=== PATIENT | female | born 1985 | race American Indian/Alaskan Native ===

== ENCOUNTER 2019-11-29 17:02 | Emergency (ER) | payer OTHER ==
[2019-11-29 17:09] VITALS: BP 147/90
[2019-11-29] MEDS ORDERED: METOCLOPRAMIDE 10 MG/2 ML INJ IV ONE (17:13)
[2019-11-29] MEDS ORDERED: SODIUM CHLORIDE 0.9% 1000 ML 1,000 ML IV ONE (17:13)
[2019-11-29] MEDS ORDERED: diphenhydrAMINE 50 MG/ML VIAL IV ONE (17:13)
--- NOTE | 2019-11-29 17:13 | Event Note ---
ED Screening Note ED Screening Note: 6 hours ago began having a headache photophobia +nausea no vomiting no hx of migraines no numbness or weakness has not taken anything for it [place] without any issues but began suddenly having the headache PMHx lupus -takes steroids as needed allergy: fentanyl has a IUD This initial assessment/diagnostic orders/clinical plan/treatment(s) is/are subject to change based on patients health status, clinical progression and re- assessment by fellow clinical providers in the ED. Further treatment and workup at subsequent clinical providers discretion. Patient/guardian urged not to elope from the ED as their condition may be serious if not clinically assessed and managed. Initial orders include: CT head meds
[2019-11-29] MEDS ORDERED: ACETAMINOPHEN 325 MG TAB PO ONE (17:15)
--- NOTE | 2019-11-29 18:15 | Emergency Department Report ---
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 Patient states that she was walking in [place] several hours later she developed a acute onset of a headache. Patient states that she usually takes steroids for her lupus. She has a Mirena and. She reports that her pain was a 10 out of 10 when she came in and after having medications is a 6 out of 10 now. Patient does report is improving. Patient denies any trauma no weakness no tingling of her hands some nausea but no vomiting no chest pain shortness of breath. Timing/Duration: 4-6 hours Quality: moderate Head Injury Location: frontal Modifying Factors: improves with: exposure to light Associated Symptoms: nausea/vomiting (Nausea no vomiting). denies: fatigue, facial pain, fever/chills, nasal congestion, nasal drainage, numbness in legs/feet, seizures, sinus infection, stiff neck, weakness Allergies/Adverse Reactions: Allergies fentanyl Allergy (Verified 11/29/19 17:03) Unknown Home Medications: Ambulatory Orders Ibuprofen [Motrin 800 MG tab] 800 mg PO Q8HR PRN #15 tablet 11/29/19 ED Review of Systems ROS: Stated complaint: MIGRAINE, BLURRY VISION Other details as noted in HPI Comment: All other systems reviewed and negative ED Past Medical Hx - Past Medical History Hx Arthritis: Yes (RHEUMATOID) Additional medical history: LUPUS - Surgical History Hx Cholecystectomy: Yes - Social History Smoking Status: Never Smoker Substance Use Type: Alcohol - Medications Home Medications: Home Medications Medication Instructions Recorded Confirmed Last Taken Type Ibuprofen [Motrin 800 MG tab] 800 mg PO Q8HR PRN #15 tablet 11/29/19 Unknown Rx ED Physical Exam - General Limitations: No Limitations General appearance: alert, in no apparent distress - Head Head exam: Present: atraumatic, normocephalic - Eye Eye exam: Present: normal appearance - Back Exam Back exam: Present: normal inspection, full ROM - Expanded Neurological Exam Expanded Patient oriented to: Present: person, place, time Cranial nerves: EOM's Intact: Normal, Gag Reflex: Normal, Tongue Deviation: Normal, Nystagmus: Normal, Facial Sensation: Normal, Facial Palsy with Forehead Movement: Normal, Facial Palsy without Forehead Movement: Normal Cerebellar function: Finger to Nose: Normal, Heel to Aceves: Normal, Romberg: Normal Upper motor neuron: Balta Neglect: Normal, Pronator Drift: Normal, Sensory Extinction: Normal Motor strength exam: RUE: 4, LUE: 4, RLE: 4, LLE: 4 Best Eye Response (Santa Claus): (4) open spontaneously Best Motor Response (Santa Claus): (6) obeys commands Best Verbal Response ([place]): (5) oriented Santa Claus Total: 15 - Psychiatric Psychiatric exam: Present: normal affect, normal mood - Skin Skin exam: Present: warm, dry, intact, normal color. Absent: rash ED Course Vital Signs 11/29/19 11/29/19 17:07 17:08 Temperature 97.9 F Pulse Rate 84 80 Respiratory 18 Rate Blood Pressure 147/90 O2 Sat by Pulse 98 98 Oximetry ED Medical Decision Making - Radiology Data Radiology results: report reviewed Patient Name: ELIDA PACKER Gender: Female Date of : 1985 Referring Provider: ASHLEY CULLEN Organization: [facility] Accession Number: [id number] Requested Date: November 29, 2019 17:13 Report Status: Final Requested Procedure: 1 Procedure Description: CT head/brain wo con Modality: CT Findings Reporting MD: Chase Garcia Dictation Time: November 29, 2019 16:52 Supervisor [employer]: Not available Pharmacy Grad Intern Date: CT head/brain wo con INDICATION / CLINICAL INFORMATION: 34 years Female; sudden onset fam, blurry v ision, photophobia. TECHNIQUE: Routine CT head without contrast. All CT scans at this location are performed using CT dose reduction for ALARA by means of automated exposure control. COMPARISON: None. FINDINGS: BRAIN / INTRACRANIAL CONTENTS: No acute hemorrhage, mass effect, midline shift, hydrocephalus, or acute, large territorial infarct. No chronic infarct or atrophy appreciated. No significant white matter abnormality. CRANIOCERVICAL JUNCTION: No significant abnormality. ORBITS: No significant abnormality of visualized orbits. SINUSES / MASTOIDS: Mucosal thickening is seen in the left sphenoid sinus. ADDITIONAL FINDINGS: None. IMPRESSION: 1. No focal mass, hemorrhage, hydrocephalus, or acute, large territorial infarct. 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 Patient states that she was walking in [place] several hours later she developed a acute onset of a headache. Patient states that she usually takes steroids for her lupus. She has a Mirena and. She reports that her pain was a 10 out of 10 when she came in and after having medications is a 6 out of 10 now. Patient does report is improving. Patient denies any trauma no weakness no tingling of her hands some nausea but no vomiting no chest pain shortness of breath. Patient was given normal saline, Reglan, Benadryl and acetaminophen. CT of head was ordered by triage. Critical care attestation.: If time is entered above; I have spent that time in minutes in the direct care of this critically ill patient, excluding procedure time. ED Disposition Clinical Impression: Headache Disposition: DC-01 TO HOME OR SELFCARE Is pt being admited?: No Does the pt Need Aspirin: No Condition: Stable Instructions: Acute Headache (ED) Additional Instructions: CT scan is negative for any acute findings. Take pain medicine as needed. Follow-up with your primary care provider if your symptoms persist or gets worse. Prescriptions: Ibuprofen [Motrin 800 MG tab] 800 mg PO Q8HR PRN #15 tablet PRN Reason: Pain , Severe (7-10) Referrals: PRIMARY CARE, [Primary Care Provider] - 3-5 Days Forms: Work/School Release Form(ED)
--- NOTE | 2019-12-04 10:18 | Cat Scan Report ---
CT head/brain wo con INDICATION / CLINICAL INFORMATION: 34 years Female; sudden onset fam, blurry vision, photophobia. TECHNIQUE: Routine CT head without contrast. All CT scans at this location are performed using CT dos e reduction for ALARA by means of automated exposure control. COMPARISON: None. FINDINGS: BRAIN / INTRACRANIAL CONTENTS: No acute hemorrhage, mass effect, midline shift, hydrocephalus, or acu te, large territorial infarct. No chronic infarct or atrophy appreciated. No significant white matter abnormality. CRANIOCERVICAL JUNCTION: No significant abnormality. ORBITS: No significant abnormality of visualized orbits. SINUSES / MASTOIDS: Mucosal thickening is seen in the left sphenoid sinus. ADDITIONAL FINDINGS: None. IMPRESSION: 1. No focal mass, hemorrhage, hydrocephalus, or acute, large territorial infarct. Signer Name: Chase Garcia MD, III Signed: 11/29/2019 5:52 PM Workstation Name: [id number]
== END 2019-11-29 19:01 | disposition home or self-care (01) ==
LOC: ED 17:02
DX: R51 Headache (principal); M19.90 Unspecified osteoarthritis, unspecified site; Z79.899 Other long term (current) drug therapy; Z88.8 Allergy status to other drugs, medicaments and biological substances
CPT/HCPCS: 70450; 96374; 96375; 99283; J1200; J2765; J7030

== ENCOUNTER 2019-12-25 15:46 | Emergency (ER) | payer SELFPAY ==
--- NOTE | 2019-12-25 17:47 | Event Note ---
ED Screening Note Date of service: 12/25/19 Time: 17:45 ED Screening Note: This is a 34-year-old female with a history of lupus who presents the ED complaining of swelling to the face and eyes from a lupus flareup. Patient states she is also experiencing pain to the face. Patient states swelli ng to the eyes is making it difficult for her to see. Patient has history of hypertension. This initial assessment/diagnostic orders/clinical plan/treatment(s) is/are subject to change based on patients health status, clinical progression and re- assessment by fellow clinical providers in the ED. Further treatment and workup at subsequent clinical providers discretion. Patient/guardian urged not to elope from the ED as their condition may be serious if not clinically assessed and managed. Initial orders include: cbc,cmp
[2019-12-25 18:09] LABS: Basophils % (Auto) 0.6 % (0.0-1.8); Eosinophils # (Auto) 0.1 K/mm3 (0.0-0.4); Eosinophils % (Auto) 1.7 % (0.0-4.3); Hematocrit 39.7 % (30.3-42.9); Hemoglobin 13.1 gm/dl (10.1-14.3); Lymphocytes % (Auto) 46.2 % (13.4-35.0); Mean Corpuscular HGB Conc 33 % (30-34); Mean Corpuscular Volume 80 fl (79-97); Monocytes # (Auto) 0.4 K/mm3 (0.0-0.8); Monocytes % (Auto) 8.4 % (0.0-7.3); Platelet Count 243 K/mm3 (140-440); Red Blood Count 4.97 M/mm3 (3.65-5.03); Red Cell Distribution Width 12.6 % (13.2-15.2)
[2019-12-25 18:39] LABS: Alanine Aminotransferase 18 units/L (7-56); Albumin 4.6 g/dL (3.9-5); BUN/Creatinine Ratio 9; Blood Urea Nitrogen 6 mg/dL (7-17); Calcium 9.6 mg/dL (8.4-10.2); Hemolysis Index 2
[2019-12-25] MEDS ORDERED: predniSONE 20 MG TAB PO ONE (20:15)
[2019-12-25] MEDS ORDERED: IBUPROFEN 800 MG TAB PO ONE (20:15)
[2019-12-25] MEDS ORDERED: ONDANSETRON 4 MG ODT TAB PO ONE (20:16)
--- NOTE | 2019-12-25 20:42 | Emergency Department Report ---
ED General Adult HPI - General Chief complaint: Pain General Stated complaint: LUPUS FLARE UP/IMPAIRED VISION Source: patient Mode of arrival: Ambulatory Limitations: No Limitations - History of Present Illness Initial comments: Patient is a 34-year-old -[place] female with a history of SLE with occasional exacerbations who presents to the ED with acute onset persistent headache with mild facial and eyelid swelling for the last 2 days. Patient states that she suspected that it may have been her lupus but was flaring and also suspected could also be from elevated blood pressure for which she does not take any medications. Patient states that she does not take any medications at this time for her lupus. Patient denies dizziness, syncope, change in vision, nausea, vomiting, chest pain, shortness of breath, abdominal pain, dysuria, urinary frequency and urgency, fever, chills, cough, neck pain or sore throat. MD Complaint: Facial and eyelid swelling, headache -: Sudden, days(s) (2) Location: head, face Radiation: non-radiation Severity scale (0 -10): 10 Quality: aching, sharp Consistency: constant Improves with: none Worsens with: none Associated Symptoms: denies other symptoms, headaches. denies: confusion, chest pain, cough, diaphoresis, fever/chills, loss of appetite, malaise, nausea/vomiting, rash, seizure, shortness of breath, syncope Treatments Prior to Arrival: none - Related Data Previous Rx's Medication Instructions Recorded Last Taken Type Ibuprofen [Motrin 800 MG tab] 800 mg PO Q8HR PRN #15 tablet 11/29/19 Unknown Rx Butalb/Acetamin/Caff 50-325-40 1 - 2 tab PO Q6HR PRN #12 tab 12/25/19 Unknown Rx [Fioricet 50-325-40] Cyclobenzaprine [Flexeril] 10 mg PO TID PRN #15 tablet 12/25/19 Unknown Rx Ibuprofen [Motrin] 800 mg PO Q8HR PRN #24 tablet 12/25/19 Unknown Rx predniSONE [Deltasone] 40 mg PO QDAY #10 tab 12/25/19 Unknown Rx Allergies Allergy/AdvReac Type Severity Reaction Status Date / Time amoxicillin Allergy Hives Verified 12/25/19 15:58 fentanyl Allergy Unknown Verified 12/25/19 15:58 ED Review of Systems ROS: Stated complaint: LUPUS FLARE UP/IMPAIRED VISION Other details as noted in HPI Constitutional: denies: chills, fever Eyes: other (Mild bilateral eyelids swelling). denies: eye pain, eye discharge, vision change ENT: denies: ear pain, throat pain Respiratory: denies: cough, shortness of breath, wheezing Cardiovascular: denies: chest pain, palpitations Endocrine: no symptoms reported Gastrointestinal: denies: abdominal pain, nausea, diarrhea Genitourinary: denies: urgency, dysuria, discharge Musculoskeletal: back pain, arthralgia, myalgia. denies: joint swelling Skin: denies: rash, lesions Neurological: headache. denies: weakness, paresthesias Psychiatric: denies: anxiety, depression Hematological/Lymphatic: denies: easy bleeding, easy bruising ED Past Medical Hx - Past Medical History Hx Arthritis: Yes (RHEUMATOID) Additional medical history: LUPUS - Surgical History Hx Cholecystectomy: Yes - Social History Smoking Status: Never Smoker Substance Use Type: Alcohol - Medications Home Medications: Home Medications Medication Instructions Recorded Confirmed Last Taken Type Ibuprofen [Motrin 800 MG tab] 800 mg PO Q8HR PRN #15 tablet 11/29/19 Unknown Rx Butalb/Acetamin/Caff 50-325-40 1 - 2 tab PO Q6HR PRN #12 tab 12/25/19 Unknown Rx [Fioricet 50-325-40] Cyclobenzaprine [Flexeril] 10 mg PO TID PRN #15 tablet 12/25/19 Unknown Rx Ibuprofen [Motrin] 800 mg PO Q8HR PRN #24 tablet 12/25/19 Unknown Rx predniSONE [Deltasone] 40 mg PO QDAY #10 tab 12/25/19 Unknown Rx ED Physical Exam - General Limitations: No Limitations General appearance: alert, in no apparent distress - Head Head exam: Present: atraumatic, normocephalic - Eye Eye exam: Present: normal appearance, PERRL, EOMI, other (Mild bilateral eyelid swelling) Pupils: Present: normal accommodation - ENT ENT exam: Present: normal exam, normal orophraynx, mucous membranes moist, TM's normal bilaterally, normal external ear exam - Neck Neck exam: Present: normal inspection, full ROM. Absent: tenderness - Respiratory Respiratory exam: Present: normal lung sounds bilaterally. Absent: respiratory distress, wheezes, rales, rhonchi, chest wall tenderness, accessory muscle use, prolonged expiratory - Cardiovascular Cardiovascular Exam: Present: regular rate, normal rhythm, normal heart sounds. Absent: systolic murmur, diastolic murmur, rubs, gallop - GI/Abdominal GI/Abdominal exam: Present: soft, normal bowel sounds. Absent: distended, tenderness, rebound, hyperactive bowel sounds - Extremities Exam Extremities exam: Present: normal inspection, full ROM, normal capillary refill - Back Exam Back exam: Present: normal inspection, full ROM. Absent: tenderness, CVA tenderness (R), muscle spasm, paraspinal tenderness, vertebral tenderness - Neurological Exam Neurological exam: Present: alert, oriented X3, CN II-XII intact, normal gait, reflexes normal - Psychiatric Psychiatric exam: Present: normal affect, normal mood - Skin Skin exam: Present: warm, dry, intact, normal color. Absent: rash ED Course Vital Signs 12/25/19 12/25/19 15:59 21:26 Temperature 99 F 98.6 F Pulse Rate 68 87 Respiratory 18 18 Rate Blood Pressure 139/100 132/90 [Left] O2 Sat by Pulse 100 100 Oximetry ED Medical Decision Making - Lab Data Result diagrams: 12/25/19 17:55 12/25/19 17:55 - Medical Decision Making This is a 34-year-old -[place] female with a history of SLE with occasional exacerbations who presents to the ED with acute onset persistent headache with mild facial and eyelid swelling for the last 2 days. Patient states that she suspected that it may have been her lupus but was flaring and also suspected could also be from elevated blood pressure for which she does not take any medications. Patient states that she does not take any medications at this time for her lupus. In the ED, patient is alert and oriented x3 and is not in distress. Lab test results were reviewed and are all nonactionable. Patient was treated for pain in the ED and on reevaluation, patient's pain is well controlled medications. Patient will discharge home on pain medications and advised to follow-up with her primary care physician in 5 to 7 days for reevaluation or return to the ED immediately if symptoms get worse. - Differential Diagnosis tension headache; allergic reaction; chronic pain; SLE flair Critical care attestation.: If time is entered above; I have spent that time in minutes in the direct care of this critically ill patient, excluding procedure time. ED Disposition Clinical Impression: Facial swelling Tension type headache Qualifiers: Headache chronicity pattern: acute headache Intractability: not intractable Qualified Code(s): G44.209 - Tension-type headache, unspecified, not intractable Disposition: DC- TO HOME OR SELFCARE Is pt being admited?: No Does the pt Need Aspirin: No Condition: Stable Instructions: Tension Headache (ED) Additional Instructions: Take medication with food, drink plenty of fluids and follow-up with your primary care physician in 7 to 10 days for reevaluation. Return to the ED immediately if symptoms get worse. Prescriptions: predniSONE [Deltasone] 40 mg PO QDAY #10 tab Butalb/Acetamin/Caff 50-325-40 [Fioricet 50-325-40] 1 - 2 tab PO Q6HR PRN #12 tab PRN Reason: Headache Cyclobenzaprine [Flexeril] 10 mg PO TID PRN #15 tablet PRN Reason: Muscle Spasm Ibuprofen [Motrin] 800 mg PO Q8HR PRN #24 tablet PRN Reason: Pain , Severe (7-10) Referrals: [facility] [Provider Group] - 3-5 Days Time of Disposition: 20:43 Print Language: SAUDI ARABIAN
[2019-12-25 21:28] VITALS: BP 132/90
== END 2019-12-25 21:26 | disposition home or self-care (01) ==
LOC: ED 15:46
DX: G44.209 Tension-type headache, unspecified, not intractable (principal)
CPT/HCPCS: 36415; 80053; 85025; 99283; J7512; Q0162

== ENCOUNTER 2020-11-08 08:44 | Emergency (ER) | payer SELFPAY | END 2020-11-08 09:30 | disposition left against medical advice (07) | LOC: ED 08:44 | DX: S61.509A Unspecified open wound of unspecified wrist, initial encounter (principal); Z53.21 Procedure and treatment not carried out due to patient leaving prior to being seen by health care provider; X58.XXXA Exposure to other specified factors, initial encounter; R21 Rash and other nonspecific skin eruption; Y93.89 Activity, other specified; Y92.89 Other specified places as the place of occurrence of the external cause; Y99.8 Other external cause status ==

== ENCOUNTER 2021-06-04 09:57 | Emergency (ER) | payer SELFPAY ==
[2021-06-04 10:01] VITALS: BP 145/95
--- NOTE | 2021-06-04 12:47 | Emergency Department Report ---
- General Chief Complaint: Upper Respiratory Infection Stated Complaint: CHEST PAIN Source: patient Mode of arrival: Ambulatory Limitations: No Limitations - History of Present Illness Initial Comments: pt is a 36 yo female who presents to the ED with c/o a cough that began two days. she has associated chest congestion, sore throat, and chest discomfort only with coughing. she denies any fever, n/v/d, SOB. pmhx DM and lupus. allergy to amoxicillin and fentanyl. - Related Data Previous Rx's Medication Instructions Recorded Last Taken Type Ibuprofen [Motrin 800 MG tab] 800 mg PO Q8HR PRN #15 tablet 11/29/19 Unknown Rx Butalb/Acetamin/Caff 50-325-40 1 - 2 tab PO Q6HR PRN #12 tab 12/25/19 Unknown Rx [Fioricet 50-325-40] Cyclobenzaprine [Flexeril] 10 mg PO TID PRN #15 tablet 12/25/19 Unknown Rx Ibuprofen [Motrin] 800 mg PO Q8HR PRN #24 tablet 12/25/19 Unknown Rx predniSONE [Deltasone] 40 mg PO QDAY #10 tab 12/25/19 Unknown Rx Benzonatate [Tessalon Perles] 100 mg PO Q8HR PRN #12 capsule 06/04/21 Unknown Rx Nystas/Diphen/Xyl Visc/Mylanta 30 ml MM Q4H PRN #300 ml 06/04/21 Unknown Rx [Magic Mouthwash] guaiFENesin ER [Mucinex ER] 600 mg PO Q12H #14 tablet.er 06/04/21 Unknown Rx Allergies Allergy/AdvReac Type Severity Reaction Status Date / Time amoxicillin Allergy Hives Verified 06/04/21 09:59 fentanyl Allergy Unknown Verified 06/04/21 09:59 ED Review of Systems ROS: Stated complaint: CHEST PAIN Other details as noted in HPI Comment: All other systems reviewed and negative ED Past Medical Hx - Past Medical History Hx Arthritis: Yes (RHEUMATOID) Additional medical history: LUPUS - Surgical History Hx Cholecystectomy: Yes - Social History Smoking Status: Never Smoker Substance Use Type: Alcohol - Medications Home Medications: Home Medications Medication Instructions Recorded Confirmed Last Taken Type Ibuprofen [Motrin 800 MG tab] 800 mg PO Q8HR PRN #15 tablet 11/29/19 Unknown Rx Butalb/Acetamin/Caff 50-325-40 1 - 2 tab PO Q6HR PRN #12 tab 12/25/19 Unknown Rx [Fioricet 50-325-40] Cyclobenzaprine [Flexeril] 10 mg PO TID PRN #15 tablet 12/25/19 Unknown Rx Ibuprofen [Motrin] 800 mg PO Q8HR PRN #24 tablet 12/25/19 Unknown Rx predniSONE [Deltasone] 40 mg PO QDAY #10 tab 12/25/19 Unknown Rx Benzonatate [Tessalon Perles] 100 mg PO Q8HR PRN #12 capsule 06/04/21 Unknown Rx Nystas/Diphen/Xyl Visc/Mylanta 30 ml MM Q4H PRN #300 ml 06/04/21 Unknown Rx [Magic Mouthwash] guaiFENesin ER [Mucinex ER] 600 mg PO Q12H #14 tablet.er 06/04/21 Unknown Rx ED Physical Exam - General Limitations: No Limitations General appearance: alert, in no apparent distress - Head Head exam: Present: atraumatic, normocephalic - Eye Eye exam: Present: normal appearance - ENT ENT exam: Present: normal orophraynx, mucous membranes moist, TM's normal bilaterally, normal external ear exam - Respiratory Respiratory exam: Present: normal lung sounds bilaterally. Absent: respiratory distress, wheezes, rales, rhonchi, stridor, chest wall tenderness, accessory muscle use, decreased breath sounds, prolonged expiratory - Cardiovascular Cardiovascular Exam: Present: regular rate, normal rhythm, normal heart sounds. Absent: systolic murmur, diastolic murmur, rubs, gallop - Neurological Exam Neurological exam: Present: alert, oriented X3 - Psychiatric Psychiatric exam: Present: normal affect, normal mood - Skin Skin exam: Present: warm, dry, intact ED Course Vital Signs 06/04/21 09:59 Temperature 97.9 F Pulse Rate 79 Respiratory 17 Rate Blood Pressure 145/95 O2 Sat by Pulse 98 Oximetry ED Medical Decision Making - Radiology Data Radiology results: report reviewed Ordering Physician: CASSANDRA HIGHTOWER Date of Service: 06/04/21 Procedure(s): XR chest routine 2V Accession Number(s): [id number] cc: CASSANDRA HIGHTOWER Fluoro Time In Minutes: XR chest routine 2V INDICATION / CLINICAL INFORMATION: cough, congestion COMPARISON: None available. FINDINGS: SUPPORT DEVICES: None. HEART / MEDIASTINUM: No significant abnormality. LUNGS / PLEURA: Low lung volumes. Lungs are clear. Costophrenic sulci are sharp. No pneumothorax. ADDITIONAL FINDINGS: No significant additional findings. IMPRESSION: 1. No acute findings. Signer Name: Antonio Henderson MD Signed: 06/04/2021 12:58 PM Workstation Name: [id number] Transcribed By: CS Dictated By: Antonio Henderson MD Electronically Authenticated By: Antonio Henderson MD Signed Date/Time: 06/04/211257 DD/ 57 TD/TT: - Medical Decision Making pt is a 36 yo female who presents to the ED with c/o a cough that began two days. she has associated chest congestion, sore throat, and chest discomfort only with coughing. she denies any fever, n/v/d, SOB. pmhx DM and lupus. allergy to amoxicillin and fentanyl. Vitals are stable. Breath sounds are clear bilaterally, no wheezing, no rales, no rhonchi. She is afebrile, no tachyc ardia, no hypoxia. Chest x-ray 1. No acute findings. Symptoms likely related to URI. No clinical signs of bacterial pneumonia or bacterial bronchitis. Discussed supportive care and symptomatic treatment with patient. Advised patient Please take medication as prescribed as needed. Increase your fluid intake over the next several days. Follow-up with your primary care doctor. Return to emergency room for any new or worsening symptoms. Recommend outpatient COVID-19 testing if positive need to self quarantine for 10 days from onset of symptoms. Critical care attestation.: If time is entered above; I have spent that time in minutes in the direct care of this critically ill patient, excluding procedure time. ED Disposition Clinical Impression: Upper respiratory infection Qualifiers: URI type: unspecified URI Qualified Code(s): J06.9 - Acute upper respiratory infection, unspecified Disposition: 01 HOME / SELF CARE / HOMELESS Is pt being admited?: No Does the pt Need Aspirin: No Condition: Stable Instructions: Upper Respiratory Infection, Adult Additional Instructions: Please take medication as prescribed as needed. Increase your fluid intake over the next several days. Follow-up with your primary care doctor. Return to emergency room for any new or worsening symptoms. Recommend outpatient COVID-19 testing if positive need to self quarantine for 10 days from onset of symptoms. Prescriptions: Nystas/Diphen/Xyl Visc/Mylanta [Magic Mouthwash] 30 ml MM Q4H PRN #300 ml PRN Reason: sore throat guaiFENesin ER [Mucinex ER] 600 mg PO Q12H #14 tablet.er Benzonatate [Tessalon Perles] 100 mg PO Q8HR PRN #12 capsule PRN Reason: cough Referrals: PRIMARY CARE, [Primary Care Provider] - 2-3 Days Forms: Work/School Release Form(ED) Time of Disposition: 13:09 Print Language: TAJIK
--- NOTE | 2021-06-04 13:02 | XRay Report ---
XR chest routine 2V INDICATION / CLINICAL INFORMATION: cough, congestion COMPARISON: None available. FINDINGS: SUPPORT DEVICES: None. HEART / MEDIASTINUM: No significant abnormality. LUNGS / PLEURA: Low lung volumes. Lungs are clear. Costophrenic sulci are sharp. No pneumothorax. ADDITIONAL FINDINGS: No significant additional findings. IMPRESSION: 1. No acute findings. Signer Name: Antonio Henderson MD Signed: 06/04/2021 12:58 PM Workstation Name: [id number]
== END 2021-06-04 13:24 | disposition home or self-care (01) ==
LOC: ED 09:57
DX: J06.9 Acute upper respiratory infection, unspecified (principal); M19.90 Unspecified osteoarthritis, unspecified site; Z88.1 Allergy status to other antibiotic agents; Z88.8 Allergy status to other drugs, medicaments and biological substances; Z79.899 Other long term (current) drug therapy
CPT/HCPCS: 71046; 99283